=== PATIENT | female | born 1945 | race Caucasian/White ===

== ENCOUNTER 2018-05-22 09:48 | Day surgery (SDC) | payer MEDICARE, BC ==
[~2018-05-22 09:48] MED LIST: BSS OPTH.SOL* BTL ONE; Bacitracin OPHTH.OINT* 3.5 GM ONE; Buffered Lidocaine 1% SYRIN* 1 ML/SYRINGE INTRADERM ONE; Lactated Ringers 1000 ML Bag* 1,000 ML IV SCH; Lidocain 1% EPI 1:100,000 * 30 ML MDV ONE
[2018-05-22] MEDS ORDERED: fentaNYL* 50 MCG/ML 2 ML VIAL (100 MCG VIAL) ONE (11:23)
[2018-05-22] MEDS ORDERED: Midazolam* 1 MG/ML 2 ML VIAL (2 MG) ONE (11:23)
[2018-05-22] MEDS ORDERED: Lidocaine 2% PF * 5 ML VIAL ONE (12:30)
[2018-05-22] MEDS ORDERED: Propofol* 10 MG/ML 20 ML BTL ONE (12:30)
[2018-05-22 14:11] VITALS: BP 131/81
--- NOTE | 2018-05-22 14:57 | OP ---
DATE OF OPERATION: 05/22/18 [facility] DATE OF : 43 SURGEON: Navarro Edwards MD VEGETABLE VENDOR: None. PRE-OP DIAGNOSIS: Bilateral upper lid blepharochalasis. POST-OP DIAGNOSIS: Bilateral upper lid blepharochalasis. OPERATIVE PROCEDURE: Bilateral upper lid blepharoplasty. COMPLICATIONS: None. BLOOD LOSS: Less than 5 cc. DESCRIPTION OF PROCEDURE: The patient was brought into the preoperative holding area and carefully marked to delineate the areas of skin that would be removed. Care was taken to leave at least 20 mm of healthy tissue. The patient was subsequently brought into operating room and given a small amount of intravenous sedation. She was given 1% lidocaine with epinephrine injections under each upper eyelid. The patient was then prepped and draped in the usual sterile fashion for ophthalmic surgery and attention was directed to the left upper eyelid. Here, a cut was made with the Bovie corresponding to the lyman made preoperatively. An elliptical piece of skin and muscle was created and the flap was removed. The septum was violated and gentle pressure on the globe herniated fat tissue. This was sequentially clamped, cut, and cauterized. Careful hemostasis was achieved with cauterization as needed. Attention was then directed to the contralateral upper eyelid where the same procedure was performed. Once it was deemed there was no active bleeding and good symmetry was achieved, each eyelid was closed with a running 6-0 gut suture. Topical bacitracin ointment was placed on the surface of the skin where the wounds were and the patient was brought to the recovery room in stable condition with postop instructions and followup appointment given. [id number] #: [id number]
== END 2018-05-22 14:29 | disposition home or self-care (01) ==
LOC: OREAST 09:48
PROVIDERS: ATTEND Ophthalmology
DX: H02.834 Dermatochalasis of left upper eyelid (principal); H02.831 Dermatochalasis of right upper eyelid; I10 Essential (primary) hypertension; Z86.718 Personal history of other venous thrombosis and embolism; M19.90 Unspecified osteoarthritis, unspecified site
CPT/HCPCS: 88300; A9270-GY; J2250; J2704; J3010

== ENCOUNTER 2022-01-28 06:39 | Observation (INO) ==
[~2022-01-28 06:39] MED LIST changes: -BSS OPTH.SOL* BTL ONE; -Bacitracin OPHTH.OINT* 3.5 GM ONE; +Buffered Lidocaine 1% SYRIN 1 ml INTRADERM ONE; -Buffered Lidocaine 1% SYRIN* 1 ML/SYRINGE INTRADERM ONE; +HYDROcodone/ACETAMIN 5/325 mg TAB PO PRN; -Lactated Ringers 1000 ML Bag* 1,000 ML IV SCH; +Lactated Ringers 1000 ml BAG 1,000 ML IV SCH; -Lidocain 1% EPI 1:100,000 * 30 ML MDV ONE; +Metoclopramide 5 MG/ML VIAL (10 mg) IV PRN; +Naloxone 0.4 mg VIAL 0.4 mg/ml 1 ml VIAL IV PRN; +Ondansetron 4 mg VIAL 2 MG/ML 2 ml VIAL IV PRN
[2022-01-28] MEDS ORDERED: Midazolam 2 mg/2 ml VIAL 1 mg/ml 2 ml VIAL (2 mg) ONE (06:47)
[2022-01-28] MEDS ORDERED: Bupivacaine 0.5% PF 10 ML SDV VIAL INJ ONE (06:47)
[2022-01-28] MEDS ORDERED: Lidocaine 2% PF 5 ML VIAL ONE (06:47)
[2022-01-28] MEDS ORDERED: Phenylephrine IV 10 MG/ML 1 ml VIAL ONE (06:47)
[2022-01-28] MEDS ORDERED: Ondansetron 4 mg VIAL 2 MG/ML 2 ml VIAL ONE (06:47)
[2022-01-28] MEDS ORDERED: Propofol 10 MG/ML 20 ML BTL ONE (06:47)
[2022-01-28] MEDS ORDERED: Propofol 0 MG/0 ML BTL ONE (06:47)
[2022-01-28] MEDS ORDERED: fentaNYL 100 mcg/2 ml 50 MCG/ML VIAL ONE ×3 (06:47→12:00)
[2022-01-28] MEDS ORDERED: Dexamethasone IV 4 MG/ML VIAL 1 ml VIAL ONE ×2 (06:47→07:34)
[2022-01-28] MEDS ORDERED: ceFAZolin 2 GM PREMIX 2 GM/50 ML BAG ONE (07:04)
[2022-01-28] MEDS ORDERED: ROPIVACAINE 5 MG/ML 30 ML BTL (0.5%) ONE ×2 (07:34→07:56)
[2022-01-28] MEDS ORDERED: HYDROmorphone 0.5 MG/0.5 ML SYRINGE ONE (09:21)
[2022-01-28] MEDS ORDERED: Lactulose 30 ml UDC PO PRN (11:30)
[2022-01-28] MEDS ORDERED: Magnesium Hydroxide LIQ 30 ML UDC PO PRN (11:30)
[2022-01-28] MEDS ORDERED: Ondansetron ODT 4 mg TAB 4 MG TAB PO PRN (11:30)
[2022-01-28] MEDS ORDERED: Morphine 2 MG/ML SYRINGE IV PRN (11:30)
[2022-01-28] MEDS ORDERED: Ondansetron 4 mg VIAL 2 MG/ML 2 ml VIAL IV PRN (11:30)
[2022-01-28] MEDS ORDERED: Lactated Ringers 1000 ml BAG 1,000 ML IV SCH (12:00)
[2022-01-28] MEDS: fentaNYL 100 mcg/2 ml 50 MCG/ML VIAL IV PRN ×2 (12:03→12:09)
[2022-01-28] MEDS ORDERED: HYDROcodone/ACETAMIN 5/325 mg TAB ONE (12:53)
[2022-01-28] MEDS ORDERED: HYDROcodone/ACETAMIN 5/325 mg TAB PO PRN (16:54)
[2022-01-28] MEDS: ceFAZolin 1 GM ADVAN 1 GM in NS 0.9% 50 ML 50 ML IVPB SCH (17:02)
[2022-01-28] MEDS: HYDROcodone/ACETAMIN 5/325 mg TAB PO PRN ×2 (18:57→23:43)
[2022-01-28] MEDS: Magnesium Hydroxide LIQ 30 ML UDC PO SCH (21:42)
[2022-01-29] MEDS: ceFAZolin 1 GM ADVAN 1 GM in NS 0.9% 50 ML 50 ML IVPB SCH ×2 (01:09→07:55)
[2022-01-29] MEDS: HYDROcodone/ACETAMIN 5/325 mg TAB PO PRN ×3 (03:53→11:59)
[2022-01-29 07:16] LABS: Hematocrit 32 % (35-47); Hemoglobin 10.9 g/dL (12.0-16.0); Mean Platelet Volume 6.5 fL (7.4-10.4); Platelet Count 282 10^3/uL (150-450)
[2022-01-29 07:40] LABS: Calcium 8.8 mg/dL (8.6-10.3); Potassium 3.8 mmol/L (3.5-5.0); eGFR CKD-EPI 81.9 (>60)
[2022-01-29] MEDS: Magnesium Hydroxide LIQ 30 ML UDC PO SCH (07:55)
[2022-01-29 08:36] VITALS: BP 145/66
[2022-01-29] MEDS ORDERED: Vitamin THERAPEUTIC TAB PO SCH (09:00)
== END 2022-01-29 13:25 | disposition home or self-care (01) ==
LOC: SSU 06:39 → OR 06:39
PROVIDERS: ADMIT Orthopaedic Surgery Adult Reconstructive Orthopaedic Surgery; ATTEND Orthopaedic Surgery Adult Reconstructive Orthopaedic Surgery